=== PATIENT | male | born 1995 | race Caucasian/White ===

== ENCOUNTER 2020-03-30 13:35 | Emergency (ER) | payer BC ==
[~2020-03-30] VITALS: Ht 177.8 cm; Wt 86.2 kg
[2020-03-30 13:35] VITALS: BP_SYST 106
--- NOTE | 2020-03-30 13:35 | NUR ---
BROUGHT INTO TENT AND TRIAGED. AWAITING ER AVAILABLE BED.
--- NOTE | 2020-03-30 13:45 | NUR ---
PT STATES HE AWOKE WITH RIGHT SHOULDER PAIN. DOES NOT REMEMBER ANY INJURY TO TRAUMA. PAIN WITH MOVEMENTS.
--- NOTE | 2020-03-30 14:14 | NUR ---
DR CARIAS EVALUATING PT OUT IN TENT
[2020-03-30] MEDS ORDERED: KETOROLAC TROMETHAMINE 30 MG VIAL IM ONE (14:45)
[2020-03-30 15:41] VITALS: BP_SYST 106
--- NOTE | 2020-03-30 15:42 | NUR ---
Patient given written and verbal discharge instructions and verbalizes understanding. ER MD discussed with patient the results and treatment provided. Patient in stable condition. ID arm band removed. Rx of Ibuprofen and Tylenol given. Patient educated on pain management and to follow up with PMD. Pain Scale 2/10 tolerable for patient . Opportunity for questions provided and answered. Medication side effect fact sheet provided.
== END 2020-03-30 15:42 | disposition home or self-care (01) ==
LOC: SED 13:35
DX: S46.811A Strain of other muscles, fascia and tendons at shoulder and upper arm level, right arm, initial encounter (principal); X50.1XXA Overexertion from prolonged static or awkward postures, initial encounter; Y93.89 Activity, other specified; Y92.89 Other specified places as the place of occurrence of the external cause; Y99.8 Other external cause status
CPT/HCPCS: 96372; 73030; 99283; J1885

== ENCOUNTER 2021-05-12 15:43 | Emergency (ER) | payer BC, SELFPAY ==
[~2021-05-12] VITALS: Ht 180.3 cm; Wt 93.4 kg
[2021-05-12 16:00] VITALS: BP_SYST 121
--- NOTE | 2021-05-12 16:15 | NUR ---
Patient to ER bed T2 to gown for evaluation. Side rails up.
--- NOTE | 2021-05-12 16:35 | NUR ---
ER at bedside examining patient.
--- NOTE | 2021-05-12 16:45 | NUR ---
PT C/O COVID SYMPTOMS
[2021-05-12 17:00] VITALS: BP_SYST 121
--- NOTE | 2021-05-12 17:00 | NUR ---
Patient given written and verbal discharge instructions and verbalizes understanding. ER MD discussed with patient the results and treatment provided. Patient in stable condition. ID arm band removed. NO Rx of given. Patient educated on pain management and to follow up with PMD. Pain Scale 0 Opportunity for questions provided and answered. Medication side effect fact sheet provided.
== END 2021-05-12 17:00 | disposition home or self-care (01) ==
LOC: SED 15:43
DX: B34.9 Viral infection, unspecified (principal)
CPT/HCPCS: 99281